=== PATIENT | female | born 1965 | race Caucasian/White ===

== ENCOUNTER → 2021-06-14 10:52 | Outpatient (CLI) | payer OTHER, SELFPAY ==
--- NOTE | ~2021-06-14 | MM_ITS ---
EXAMINATION: MM screening [facility] BI w jhon HISTORY: Screening mammogram TECHNIQUE: Craniocaudal and mediolateral oblique 3-D tomosynthesis images were obtained and synthetic 2-D images were generated. CAD analysis was submitted and interpreted. COMPARISON: 08/05/2019, 11/26/2017, 05/06/2017, 09/25/2016 BREAST PARENCHYMAL COMPOSITION: There are scattered areas of fibroglandular density. FINDINGS: There is no evidence of suspicious mass, calcification, or architectural distortion to sugg est malignancy in either breast. There has been no suspicious interval change. IMPRESSION: 1. No mammographic evidence of malignancy. 2. Recommend routine screening mammography in one year. BI-RADS Category 1: Negative Reviewed, dictated and finalized at location A.
== END ==
PROVIDERS: Visit Provider Obstetrics & Gynecology
DX: Z12.31 Encounter for screening mammogram for malignant neoplasm of breast (principal)
CPT/HCPCS: 77063; 77067

== ENCOUNTER 2022-10-10 14:01 | Emergency (ER) | payer OTHER, SELFPAY ==
[2022-10-10 14:10] VITALS: BP 147/84; PULSE 86; RESP 18; TEMP 36.4; O2SAT 100
--- NOTE | 2022-10-10 14:10 | ED.UPPEXIN ---
HPI - Extremity Injury (Upper) General Chief Complaint: Skin/Abscess/Foreign Body Stated Complaint: FINGER BRUISING/NUMBNESS Time Seen by Provider: 10/10/22 14:15 Source: patient Mode of arrival: ambulatory Limitations: no limitations History of Present Illness HPI narrative: 57-year-old female presents with concern for discoloration to the 3rd digit of the right hand. She reports she began having purple coloration to the distal digit with numbness prior to arrival. She denies any injury or trauma. She reports after her blood pressure was taken in triage and she was massaging the finger feeling returned and the color returned to normal. She reports several days ago she was waxing her car and developed a very small blood blister on that finger, she denies any other injury or trauma. She denies pain, decreased strength, range of motion. MD complaint: injury to: right and finger Related Data Home Medications Medication Instructions Recorded Confirmed alendronate 70 mg tablet 70 mg PO WEEKLY 10/10/22 10/10/22 Allergies Allergy/AdvReac Type Severity Reaction Status Date / Time No Known Allergies Allergy Verified 10/10/22 14:08 Review of Systems Review of Systems: CONSTITUTIONAL: Denies malaise, chills, sweats, or fever. CARDIOVASCULAR: Denies chest pain, palpitations, or edema. RESPIRATORY: Denies cough or dyspnea. SKIN: Denies rash or itching. Denies lacerations or abrasions. Reports blood blister that has resolved on the 3rd digit right hand MUSCULOSKELETAL: Reports decreased sensation, discoloration of the 3rd digit of the right hand NEUROLOGIC: Denies weakness or headache. All systems reviewed & are unremarkable except as noted in HPI and below PMFSH Social History Social History Smoking status: Never smoker Alcohol intake: current Comments At time of signature, agree with nursing past medical, surgical, social and family history. There is no relevant family history pertinent to the presenting complaint Exam Narrative: GENERAL: Well-appearing, well-nourished, and in no acute distress. HEAD: Normocephalic EYES: PERRLA, conjunctivae clear NECK: Supple. CHEST: Speaks in full sentences. No respiratory distress. HEART: Regular rate and rhythm. Normal and equal peripheral pulses. EXTREMITIES: 3rd digit of the right hand concurrently has normal strength and sensation. 5/5 strength with digit flexion, extension. Range of motion normal. No clubbing, cyanosis, or edema noted. No tenderness. Skin intact. Normal digital cascade with flexion of fingers, median, ulnar and radial nerve intact. Normal sensation of each side of finger. Can perform 'okay' sign, 'cross over finger test of index and middle fingers' and 'thumbs up' sign. No scissoring. Normal thumb opposition. Good capillary refill and radial pulse. Capillary refill equal to the left hand. Distal capillary refill less than 3 seconds. Patient is right/left hand dominant SKIN: Warn, dry, intact, pink. No rash NEURO: Alert and oriented x3. PSYCH: Normal mood and affect Course Course Emergency Course: Prior to patient being transferred she reports that the palmar aspect of the digit is starting to become a little more purple. Digit still has equal capillary refill, normal sensation. Reiterated discharge instructions that if symptoms persist, worsens patient should go the emergency room. Patient is aware of diagnosis, understands and agrees to treatment plan. Anticipatory guidance given. Patient agrees to follow-up as directed and is aware of reasons to seek care at the emergency department. Portions of this record may have been created with voice recognition software Level of Care: Express Care Visit Vital Signs Vital signs: Reviewed. Critical Care Time Critical Care Time Critical Care Time: No Discharge Plan Discharge Clinical Impression: Cyanosis of fingertip Patient Disposition: Home, Self-Care Condition: Stable Instructions
== END 2022-10-10 14:34 | disposition home or self-care (01) ==
PROVIDERS: Emergency Provider Nurse Practitioner; PCP Obstetrics & Gynecology
DX: R23.0 Cyanosis (principal)
CPT/HCPCS: 99202; G0463

== ENCOUNTER → 2022-12-22 13:58 | Outpatient (CLI) | payer OTHER, SELFPAY ==
--- NOTE | ~2022-12-22 | MM_ITS ---
EXAMINATION: MM screening [facility] BI w jhon HISTORY: Screening mammogram TECHNIQUE: Craniocaudal and mediolateral oblique 3-D tomosynthesis images were obtained and synthetic 2-D images were generated. CAD analysis was submitted and interpreted. COMPARISON: 06/14/2021, 08/05/2019 bilateral screening mammogram examinations BREAST PARENCHYMAL COMPOSITION: There are scattered areas of fibroglandular density. FINDINGS: There is no evidence of suspicious mass, calcification, or architectural distortion to sugg est malignancy in either breast. There has been no suspicious interval change. IMPRESSION: 1. No mammographic evidence of malignancy. 2. Recommend routine screening mammography in one year. BI-RADS Category 1: Negative Reviewed, dictated and finalized at location A. 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
== END ==
PROVIDERS: PCP Obstetrics & Gynecology; Visit Provider Obstetrics & Gynecology
DX: Z12.31 Encounter for screening mammogram for malignant neoplasm of breast (principal)
CPT/HCPCS: 77063; 77067

== ENCOUNTER 2024-09-06 00:39 | Day surgery (SDC) | payer OTHER, SELFPAY ==
[2024-08-22 12:27] VITALS: BMI 24.5
[2024-09-06 08:18] VITALS: BP 122/83; PULSE 76; RESP 18; TEMP 35.9; O2SAT 100
[2024-09-06] MEDS: LACTATED RINGERS 1,000 ML 150 ML IV CONT (08:26)
--- NOTE | 2024-09-06 09:09 | P.PNAN_ITS ---
Anes - Initial Pre Proc Eval Procedure: Operation Date: 09/06/24 09:30 Proposed Procedures p Screening Colonoscopy - Bruce Mayo MD Date/Time: 09/06/24 09:09 Surgeon: Bruce Mayo MD Pre Op Diagnosis: screening neoplasm of colon Patient Data Age: 59 Gender: F Height: 1.68 m Weight: 67.7 kg Last Vital Signs Temp 96.6 F L 09/06/24 08:18 Pulse 76 09/06/24 08:18 Resp 18 09/06/24 08:18 BP 122/83 09/06/24 08:18 Pulse Ox 100 09/06/24 08:18 O2 Del Method Room Air 09/06/24 08:18 Allergies Allergy/AdvReac Type Severity Reaction Status Date / Time No Known Allergies Allergy Verified 09/06/24 08:16 Home Medications Medication Instructions Recorded Confirmed Type alendronate 70 mg tablet 70 mg PO WEEKLY 10/10/22 09/06/24 History Vitamin D (with calcium) 1 cap PO DAILY 08/22/24 09/06/24 History multivit with minerals-iron 18 1 tablet PO DAILY 08/22/24 09/06/24 History mg-folic ac 400 mcg-vit K 25 mcg tablet (Adults Multivitamin) omega-3 fatty acids 1 cap PO DAILY 08/22/24 09/06/24 History Patient hx anesthesia problems: none Family hx anesthesia problems: none Results Review: All pre-operative results and documents have been reviewed as part of the pre- operative evaluation. PMF Social History Social History Smoking status: Never smoker Alcohol intake: current Drinks per week: 5 Substance use: never Substance use type: does not use Living arrangements: with family Spiritual care concerns: No Anes - Eval Final PreProcedure Day of Procedure 09/06/24 09:09 Patient weight: normal Heart: regular rate and rhythm Lungs: clear to auscultation Airway: Mallampati scale class II Neurological: alert and oriented Last oral intake: >/= 8 hours ASA classification: II Emergent: no Anesthetic plan: proceed Anesthesia type and monitoring: general GIVS and standard monitoring Results Review: All pre-operative results and documents have been reviewed as part of the pre- operative evaluation. Informed Consent: The patient's anesthetic plan and its attendant risks and benefits were discussed with the patient/family/POA. Questions were solicited and answers provided to the satisfaction of the patient/family/POA.
--- NOTE | 2024-09-06 09:37 | PM.IMHP ---
H&P: HPI History of Present Illness Date/Time: 09/06/24 09:37 Chief Complaint: Screening for colon cancer. Narrative: The patient has a history of colonic polyps. Here for surveillance colonoscopy. Review of Systems Review of Systems: All systems reviewed & are unremarkable except as noted in HPI and below PMFSH Social History Social History Smoking status: Never smoker Alcohol intake: current Drinks per week: 5 Substance use: never Substance use type: does not use Living arrangements: with family Spiritual care concerns: No Meds Home Medications and Allergies Home Medications Medication Instructions Recorded Confirmed Type alendronate 70 mg tablet 70 mg PO WEEKLY 10/10/22 09/06/24 History Vitamin D (with calcium) 1 cap PO DAILY 08/22/24 09/06/24 History multivit with minerals-iron 18 1 tablet PO DAILY 08/22/24 09/06/24 History mg-folic ac 400 mcg-vit K 25 mcg tablet (Adults Multivitamin) omega-3 fatty acids 1 cap PO DAILY 08/22/24 09/06/24 History Allergies Allergy/AdvReac Type Severity Reaction Status Date / Time No Known Allergies Allergy Verified 09/06/24 08:16 Vital Signs Vital Signs - 24 hr 09/06/24 08:18 Temperature 96.6 F L Pulse Rate 76 Respiratory Rate 18 Blood Pressure 122/83 Pulse Oximetry 100 Oxygen Delivery Room Air Assessment and Plan Assessment and plan (1) Screening for malignant neoplasm of colon: Code(s): Z12.11 - Encounter for screening for malignant neoplasm of colon Status: Acute Plan Patient deemed appropriate candidate for colonoscopy. Will proceed.
[2024-09-06] MEDS: SIMETHICONE ORAL SUSPENSION 20 MG/0.3 ML 30 ML BOTTLE 0.6 ML IRRIGATION (09:49)
[2024-09-06 10:06] VITALS: BP 96/59; PULSE 62; RESP 15; O2SAT 100
[2024-09-06 10:16] VITALS: BP 101/69; PULSE 60; RESP 20; O2SAT 100
[2024-09-06 10:26] VITALS: BP 104/74; PULSE 60; RESP 19; O2SAT 100
== END 2024-09-06 10:51 | disposition home or self-care (01) ==
PROVIDERS: PCP Obstetrics & Gynecology; Referring Provider Obstetrics & Gynecology; Visit Provider Internal Medicine Gastroenterology
PROC: 0DJD8ZZ Inspection of Lower Intestinal Tract, Via Natural or Artificial Opening Endoscopic (ICD-10-PCS; CPT 45378; principal; 2024-09-06 09:30)
DX: Z12.11 Encounter for screening for malignant neoplasm of colon (principal); D12.2 Benign neoplasm of ascending colon; D12.4 Benign neoplasm of descending colon; Z79.83 Long term (current) use of bisphosphonates
CPT/HCPCS: 45385; 88305; J2003; J2704; J7120

== ENCOUNTER 2024-11-03 11:56 | Outpatient (CLI) | payer OTHER, SELFPAY ==
--- NOTE | ~2024-11-03 | MM_ITS ---
EXAMINATION: MM screening [facility] BI w jhon HISTORY: Screening TECHNIQUE: Craniocaudal and mediolateral oblique 3-D tomosynthesis images were obtained and synthetic 2-D images were generated. CAD analysis was submitted and interpreted. COMPARISON: Comparison to multiple prior studies sequentially, with oldest reviewed study dated 04/2019. BREAST PARENCHYMAL COMPOSITION: Not dense: There are scattered areas of fibroglandular density. FINDINGS: There is no evidence of suspicious mass, calcification, or architectural distortion to sugg est malignancy in either breast. There has been no suspicious interval change. IMPRESSION: 1. No mammographic evidence of malignancy. 2. Recommend routine screening mammography in one year. BI-RADS Category 1: Negative Reviewed, dictated and finalized at location B. 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
== END 2024-11-03 11:57 | disposition home or self-care (01) ==
PROVIDERS: PCP Obstetrics & Gynecology; Visit Provider Obstetrics & Gynecology
DX: Z12.31 Encounter for screening mammogram for malignant neoplasm of breast (principal)
CPT/HCPCS: 77063; 77067

== ENCOUNTER 2025-06-27 13:16 | Emergency (ER) | payer OTHER, SELFPAY ==
[2025-06-27] VITALS (11 sets, daily range): BP systolic 73–141; BP diastolic 57–87; PULSE 72–94; RESP 13–19; TEMP 36.6–36.9; O2SAT 77–100
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
--- OUTSIDE RECORDS SUMMARY | 2025-06-27 13:22 | XMS_ITS | Encounter Summary ---
Author Organization [facility] Healthcare Address [address] [place] [address] Care Team Providers Care Snowboarding Instructor Name Role Phone Jensen Scott MD Primary Care Provider [phone] [phone] Encounter Details Date Type Department Care Team (Late st Contact Info) Description 05/08/2025 Results Follow-Up [facility] at [place] [address] [place] [address] Kalpana Nguyen UTILIZATION REVIEW COORDINATOR [address] 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
--- OUTSIDE RECORDS SUMMARY | 2025-06-27 13:22 | XMS_ITS | Referral Summary ---
Author Organization [facility] Address [address] [place] [address] Care Team Providers Care Clerk Of Court Name Role Phone Jensen Scott MD Primary Care Provider [phone] Encounters Date Type Department Care Team Description 06/07/2025 Results Follow-Up [address] Medical Office Building [address] [place] [phone] Lucinda Aranda MD Vitamin D 25 hydroxy 06/07/[address] Medical Office Building [address] [place] [phone] Lucinda Aranda MD 06/07/2025 1:15 PM CDT Lab [facility] at [address] [address] Osteopenia of multiple sites 06/07/2025 10:10 AM CDT Clinical Support [address] Medical Office Building [address] [place] [address] Osteopenia of multiple sites 06/07/2025 10:40 AM CDT Office Visit [address] Medical Office Building [address] [place] [phone] Lucinda Aranda MD Osteopenia of multiple sites (Primary Dx) 05/12/2025 Orders Only [facility] [address] [facility] 5th [place] [address] [place] [phone] Lucinda Aranda MD Osteopenia of multiple sites (Primary Dx) 05/08/2025 Results Follow-Up [facility] Medical Group [facility] at [address] [address] Kalpana Nguyen NP XR Foot Right 3+ Vw 05/08/2025 10:15 AM CDT Ancillary Procedure [facility] at [address] [address] Acute foot pain, right 05/07/2025 9:00 AM CDT Office Visit [facility] at [address] [address] Merna London NP Acute foot pain, right (Primary Dx) from Last 3 Months Allergies No known active allergies Medications calcium-vitam in D3-vitamin K 500-100-40 mg-unit-mcg tablet,chewab le Take 1 Dose by mouth Vitachew- [employer] Calcium 650 mg + vitamin D 500 international units Active multivitamin capsule Take 2 capsules by mouth daily Centrum Silver Women's 50 Calcium 300 mg Vitamin D 1000 international units' Active docosahexaeno ic acid/epa (FISH OIL ORAL) Take by mouth Active cholecalcifer ol, vitamin D3, (Vitamin D3) 1,000 unit tablet,chewab le Take by mouth Active alendronate (FOSAMAX) 70 mg tabletIndicat ions:Osteopen ia of multiple sites Take 1 tablet (70 mg total) by mouth every 7 days T 12 tablet 3 04/11/20 24 025 Discontinued Active Problems No known active problems Social History Tobacco Use Types Packs/Day Years Used Date Smoking Tobacco: Never Smokeless Tobacco: Never Tobacco Cessation:Counseling Given: Not Answered Comments Unknown Sex and Gender Information Value Date Recorded Sex Assigned at Not on file 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 Gender Identity Not on file Sexual Orientation Not on file Last Filed Vital Signs Vital Sign Reading Time Taken Comments Blood Pressure 149/89 05/07/2025 8:45 AM CDT Pulse 80 05/07/2025 8:45 AM CDT Temperature 36 C (96.8 F) 05/07/2025 8:45 AM CDT Respiratory Rate 20 05/07/2025 8:45 AM CDT Oxygen Saturation 98% 05/07/2025 8:45 AM CDT Inhaled Oxygen Concentration - - Weight 72.6 kg (160 lb 1.6 oz) 06/07/2025 10:20 AM CDT Height 167 cm (5' 5.75) 06/07/2025 10:20 AM CDT Body Mass Index 26.04 06/07/2025 10:20 AM CDT Plan of Treatment Not on file Procedures Procedure Name Priority Date/Time Associated Diagnosis Comments VITAMIN D 25 HYDROXY Routine 06/07/2025 11:03 AM CDT Osteopenia of multiple sites DEXA TBS AXIAL SKELETON BONE DENSITY 1 OR MORE SITES Schedule Routine, Read Routine (OP Routine) 06/07/2025 10:13 AM CDT Osteopenia of multiple sites XR FOOT RIGHT 3 OR MORE VIEWS Schedule ZINA, Read ZINA (Appt Today, Awaiting Results) 05/08/2025 9:51 AM CDT Acute foot pain, right from Last 3 Months Results * Vitamin D 25 hydroxy (06/07/2025 11:03 AM CDT) Vitamin D 25-OH 35 30 - 80 ng/mL Comment:Testing performed by : [facility], [address] [facility], [place] [address] Blood 06/07/2025 11:0 3 AM CDT 06/07/2025 11:22 AM CDT us Lucinda Aranda MD LAB BLOOD ORDERABLES Final Re sult [facility] [address] [facility]. [place] [address] * Dexa TBS Axial Skeleton Bone Density 1 or more sites (06/07/2025 10:13 AM CDT) Anatomical Region Laterality Modality Wrist, Body N/A Radiographic Yasmeen ging Narrative 06/07/2025 10:23 AM CDT Patient Name: Agueda hZou Date of : 1965 Date of scan: 06/07/2025 Bone mineral density was performed on a [employer] Discovery Densitometer. Based on machine cross-calibration and precision studies the least significant changes of this densitometer is 0.024 g/cm2 at the spine, 0.020 g/cm2 at the total proximal femur, and 0.014g/cm2 at the forearm. HISTORY: This is a 59 y.o. postmenopausal female with a history of low bone mass. She reports that she has never smoked. She has never used smokeless tobacco. Currently on treatment with calcium, vitamin D, and alendronate (Fosamax) and current complaint of leg pain. INDICATIONS: Menopause status, treatment monitoring, and history of low bone mass. FINDINGS: BONE MINERAL DENSITY OF THE LUMBAR SPINE Bone Mineral Density (BMD) of the lumbar spine was measured from L1-L4 and the average density was calculated to be 0.857 gm/cm2. This corresponds to a T-score (standard deviations from the mean of young adults) of -1.7. When compared to the previous study of 03/08/2024 there has been no significant changes in bone density. BONE MINERAL DENSITY OF THE PROXIMAL FEMUR Bone Mineral Density (BMD) of the left hip total was found to be 0.787 gm/cm2. This corresponds to a T-score standard deviations from the mean of young adults of -1.3. Femoral neck is 0.698 gm/cm2 with a T-score (standard deviations from the mean of young adults) of -1.4. When compared to the previous study of 03/08/2024 there has been a 0.022 gm/cm (2.9%) increase in bone density that is considered significant. SUMMARY: Bone mineral density shows evidence of low bone mass at the lumbar spine and proximal femur and moderately increased fracture risk (Osteopenia). There has been a significant increase in bone density since previous measurement. The lumbar spine Trabecular Bone Score is 1.289 which suggests partially degraded bone microarchitecture compared to the general population. Final decisions regarding diagnostic or therapeutic recommendations should include BMD, TBS, additional clinical risk factors as well the clinical context of the patient. Please see attached TBS results for further details. ADDITIONAL COMMENTS: Postmenopausal Women and Men Over 50: Diagnostic criteria: Osteoporosis: BMD at or below -2.5 T-score; Osteopenia (low bone mass): BMD between -1.0 and -2.5 T-score. If the patient has a history of a fragility fracture, a fracture that occurred with trauma equivalent to a fall from a standing position or less, then the diagnosis is osteoporosis regardless of bone density. The history and data sections of the bone mineral density scan were prepared by Ruthei Ramirez (R)([facility]) who is accredited by the International Society of Clinical Densitometry. The overall patient assessment and scan interpretation were performed by Lucinda Aranda M.D. who is certified by the International Society of Clinical Densitometry. [id number] Lucinda Aranda MD [facility] DXA PROCEDURES Final Resu lt * XR Foot Right 3+ Vw (05/08/2025 9:51 AM CDT) Anatomical Region Laterality Modality Lower Extremities, Foot Right Digital Radiography 05/08/2025 3:24 PM CDT Narrative 05/08/2025 3:26 PM CDT EXAM DESCRIPTION: XR FOOT RIGHT 3 OR MORE VIEWS REASON FOR STUDY: pain Pt complains of generalized right foot pain x 5 days. No known injury or prior surgery TECHNIQUE: 3 radiographic view(s) of the right foot . COMPARISON: None available FINDINGS: No gross malalignment on nonweightbearing views. The joint spaces appear normal. No acute fracture or aggressive bone lesion is seen. No radiopaque foreign body identified.. Small heel spur is noted IMPRESSION: No acute osseous findings. THIS IS AN ELECTRONICALLY VERIFIED FINAL REPORT 05/08/2025 3:26 PM - Electronically signed by Tony Wolfe M.D. MZ T: Report ID: [id number] Reading Location: [id number] Procedure Note Tony Wolfe MD - 05/08/2025 EXAM DESCRIPTION: XR FOOT RIGHT 3 OR MORE VIEWS REASON FOR STUDY: pain Pt complains of generalized right foot pain x 5 days. No known injury orprior surgery TECHNIQUE: 3 radiographic view(s) of the right foot . COMPARISON: None available FINDINGS: No gross malalignment on nonweightbearing views. The jointspaces appear normal. No acute fracture or aggressive bone lesion is seen. No radiopaque foreign body identified.. Small heel spur is noted IMPRESSION: No acute osseous findings. THIS IS AN ELECTRONICALLY VERIFIED FINAL REPORT 05/08/2025 3:26 PM - Electronically signed by Tony Wolfe M.D. MZ T: Report ID: [id number] Reading Location: [place] [address] Merna London SOFTWARE SALES CONSULTANT IMG XR PROCEDURES Final Result from Last 3 Months Insurance [employer] [place] [id number] [employer] [facility] [id number] [facility] [id number] [facility] [id number] [address] Relationship Specialty Start Date End Date Jensen Scott MD [address] [facility] [address] [place] [address] PCP - General 06/27/20
--- OUTSIDE RECORDS SUMMARY | 2025-06-27 13:22 | XMS_ITS | Encounter Summary ---
Author Organization [facility] Address [address] [place] [address] Phone Care Team Providers Care X Ray Control Equipment Repairer Name Role Phone Jensen Scott MD Primary Care Provider [phone] [phone] Encounter Details Date Type Department Care Team (Late st Contact Info) Description 06/07/2025 Results Follow-Up [address] Medical Office Building [address] [place] [phone] Lucinda Aranda MD [address] [place] [address] [address] [place], [place] [id number] Vitamin D 25 hydroxy Social History Tobacco Use Types Packs/Day Years Used Date Smoking Tobacco: Never Smokeless Tobacco: Never Comments Unknown Sex and Gender Information Value Date Recorded Sex Assigned at Not on file 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 Please make sure that you maintain vitamin-D 1764-8766 IU [id number] on a daily basis. Please let me know if you have any questions. documented in this encounter Plan of Treatment Not on file documented as of this encounter Visit Diagnoses Not on filedocumented in this encounter Care Teams X Ray Control Equipment Repairer Relationship Specialty Start Date End Date Jensen Scott MD [address] [place] [id number] PCP - General 06/27/20 documented as of this encounter
--- OUTSIDE RECORDS SUMMARY | 2025-06-27 13:22 | XMS_ITS | Clinical Summary ---
Author Organization [facility] Address [address] [place] [address] Care Team Providers Care Sap Hana Developer Name Role Phone Jensen Scott MD Primary Care Provider [phone] [phone] Allergies No known active allergies Medications calcium-vitam [...] Discontinued Active Problems No known active problems Encounters Date Type Department Care Team Description 06/07/2025 1:15 PM CDT Lab [facility] at [address] [phone] Osteopenia of multiple sites 06/07/2025 10:40 AM CDT Office Visit [facility] [address] [place] [address] Medical Office Building 2 [address] [place] [address] Lucinda Aranda MD Osteopenia of multiple sites (Primary Dx) 06/07/2025 10:10 AM CDT Clinical Support [address] Medical Office Building 2 [address] [place] [address] Osteopenia of multiple sites 06/07/2025 Results Follow-Up [address] Office Building [address] [place] [address] Lucinda Aranda MD Vitamin D 25 hydroxy 06/07/[address] Office Building [address] [place] [address] Lucinda Aranda MD 05/12/2025 Orders Only [place] [id number] [facility] 5th [place] [address] [place] [address] Lucinda Aranda MD Osteopenia of multiple sites (Primary Dx) 05/08/2025 10:15 AM CDT Ancillary Procedure [facility] Imaging at [address] [address] Acute foot pain, right 05/08/2025 Results Follow-Up [facility] at [address] [address] Kalpana Nguyen NP XR Foot Right 3+ Vw 05/07/2025 9:00 AM CDT Office Visit [facility] at [address] [address] Merna London NP Acute foot pain, right (Primary Dx) from Last 3 Months Family History Medical History Relation Name Comments Osteoporosis Other Hip fracture Neg Hx Scoliosis Neg Hx Relation Name Status Comments Other Social History Tobacco Use Types Packs/Day Years Used Date Smoking Tobacco: Never Smokeless Tobacco: Never Tobacco Cessation:Counseling Given: Not Answered Comments Unknown Sex and Gender Information Value Date Recorded Sex Assigned at Not on file 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 Gender Identity Not on file Sexual Orientation Not on file Obstetrics History Last Filed Vital Signs Vital Sign Reading [...] 06/07/2025 10:20 AM CDT Plan of Treatment Health Maintenance Due Date Last Done Comments Breast Cancer Screening-Mammogram 1965 Cervical Cancer Screening 1965 Colon Cancer Screening-Colonoscopy 1965 Depression Screening 1965 Hepatitis C Screening 1965 DTaP/Tdap/Td Vaccine (1 - Tdap) 1975 Hepatitis B Screening 1982 Regular Well Visit/Exam 18-64 1982 Zoster Vaccine (1 of 2) 2014 Influenza Vaccine (#1) 2025 Pneumococcal vaccine <65 Aged Out No longer eligible based on patient's age to complete this topic Procedures Procedure Name Priority Date/Time Associated Diagnosis [...] - 80 ng/mL Comment:Testing performed by : [facility], [address] [place] [address] Blood 06/07/2025 11:0 3 AM CDT 06/07/2025 11:22 AM CDT us Lucinda Aranda MD LAB BLOOD ORDERABLES Final Re sult [facility] [address] [facility]. [place] [address] * Dexa TBS Axial Skeleton Bone Density 1 or more sites (06/07/2025 10:13 AM CDT) Anatomical Region Laterality Modality Wrist, Body N/A Radiographic Yasmeen ging Narrative 06/07/2025 10:23 AM CDT Patient Name: Agueda Zhou Date of : 1965 Date of scan: 06/07/2025 Bone mineral density was performed on a [employer] Discovery Densitometer. Based on machine cross-calibration and [...] bone mineral density scan were prepared by Ruthie Ramirez (R)(CBDT) who is accredited by the International Society of Clinical Densitometry. The overall patient assessment and scan interpretation were performed by Lucinda Aranda M.D. who is certified by the International Society of Clinical Densitometry. [id number] Lucinda Aranda MD IM DXA PROCEDURES Final Resu lt * XR [...] Tony Wolfe M.D. MZ T: Report ID: [id number] Reading Location: [id number] Procedure Note Tony Wolfe MD - 05/08/2025 [...] Tony Wolfe M.D. MZ T: Report ID: [id number] Reading Location: [id number] Merna London SOFTWARE DEVELOPMENT INTERN IMG XR PROCEDURES Final Result from Last 3 Months Insurance PENDING SALE TO [facility] [id number] [facility] [id number] [facility] [id number] [facility] [id number] Care Teams Sap Hana Developer Relationship Specialty Start Date End Date Jensen Scott MD [address] [facility] [address] [id number] PCP - General 06/27/20
--- NOTE | 2025-06-27 13:31 | ECG_ITS ---
Test Date: 2025-06-27 13:36:20 Measurements Intervals [place] Rate: 92 P: 55 HI: 158 QRS: 29 QRSD: 136 T: 30 QT: 349 QTc: 433 Interpretive Statements SINUS RHYTHM INTRAVENTRICULAR CONDUCTION DELAY Electronically Signed On 06-27-2025 17:31:03 CDT by Gerson Bello D.O
--- OUTSIDE RECORDS SUMMARY | 2025-06-27 14:38 | XMS_ITS | Encounter Summary ---
Author Organization [facility] Address [address] [place] [address] Phone Care Team Providers Care Lab Analyst Name Role Phone Jensen Scott MD Primary Care Provider [phone] [phone] Encounter Details Date Type Department Care Team (Late st Contact Info) Description 06/07/2025 Results Follow-Up [address] Medical Office Building [address] [place] [phone] Lucinda Aranda MD [address] [place] [address] [address] [place], [place] [id number] Vitamin D 25 hydroxy Social History Tobacco Use Types Packs/Day Years Used Date Smoking Tobacco: Never Smokeless Tobacco: Never Comments Unknown Sex and Gender Information Value Date Recorded Sex Assigned at Not on file 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 Please make sure that you maintain vitamin-D 1373-1454 IU [id number] on a daily basis. Please let me know if you have any questions. documented in this encounter Plan of Treatment Not on file documented as of this encounter Visit Diagnoses Not on filedocumented in this encounter Care Teams Lab Analyst Relationship Specialty Start Date End Date Jensen Scott MD [address] [place] [id number] PCP - General 06/27/20 documented as of this encounter
--- OUTSIDE RECORDS SUMMARY | 2025-06-27 14:38 | XMS_ITS | Clinical Summary ---
Author Organization [facility] Address [address] [place] [address] Care Team Providers Care Speed Belt Sander Name Role Phone Jensen Scott MD Primary Care Provider [phone] Allergies No known active allergies Medications calcium-vitam [...] Team Description 06/07/2025 1:15 PM CDT Lab [facility] at [address] [phone] Osteopenia of multiple sites 06/07/2025 10:40 AM CDT Office Visit [facility] [address] [place] [address] Medical Office Building 2 [address] [place] [address] Lucinda Aranda MD Osteopenia of multiple sites (Primary Dx) 06/07/2025 10:10 AM CDT Clinical Support [address] Medical Office Building 2 [address] [place] [address] Osteopenia of multiple sites 06/07/2025 Results Follow-Up [address] Office Building [address] [place] [address] Lucinda Aranda MD Vitamin D 25 hydroxy 06/07/[address] Office Building [address] [place] [address] Lucinda Aranda MD 05/12/2025 Orders Only [place] [id number] [facility] 5th [place] [address] [place] [address] Lucinda Aranda MD Osteopenia of multiple sites (Primary Dx) 05/08/2025 10:15 AM CDT Ancillary Procedure [facility] Imaging at [address] [address] Acute foot pain, right 05/08/2025 Results Follow-Up [facility] at [address] [address] Kalpana Nguyen NP XR Foot Right 3+ Vw 05/07/2025 9:00 AM CDT Office Visit [facility] at [address] [address] Merna London NP Acute foot [...] on file 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 [place] [address] * Dexa TBS Axial Skeleton Bone Density 1 or more sites (06/07/2025 10:13 AM CDT) Anatomical Region Laterality Modality Wrist, Body N/A Radiographic Yasmeen ging Narrative 06/07/2025 10:23 AM CDT Patient Name: Agueda Zhou Date of : 1965 Date of scan: 06/07/2025 Bone mineral density was performed on a [employer] Discovery Densitometer. Based on machine cross-calibration and [...] by the International Society of Clinical Densitometry. [id number] Lucinda Aranda MD IM DXA PROCEDURES Final [...] Tony Wolfe M.D. MZ T: Report ID: [id number] Reading Location: [id number] Procedure Note Tony Wolfe MD - 05/08/2025 [...] Tony Wolfe M.D. MZ T: Report ID: [id number] Reading Location: [id number] Merna London RIGHT OF WAY MAINTENANCE SUPERVISOR IMG XR PROCEDURES Final Result from Last 3 Months Insurance [facility] [id number] [facility] [id number] [facility] [id number] [facility] [id number] Care Teams Speed Belt Sander Relationship Specialty Start Date End Date Jensen Scott MD [address] [facility] [address] [id number] PCP - General 06/27/20
--- OUTSIDE RECORDS SUMMARY | 2025-06-27 14:38 | XMS_ITS | Referral Summary ---
Author Organization [facility] Address [address] [place] [address] Care Team Providers Care Audio Visual Project Manager Name Role Phone Jensen Scott MD Primary Care Provider [phone] Encounters Date Type Department Care Team Description 06/07/2025 Results Follow-Up [address] Medical Office Building [address] [place] [address] Lucinda Aranda MD Vitamin D 25 hydroxy 06/07/[address] Medical Office Building [address] [place] [address] Lucinda Aranda MD 06/07/2025 1:15 PM CDT Lab [facility] at [address] [address] Osteopenia of multiple sites 06/07/2025 10:10 AM CDT Clinical Support [address] Medical Office Building [address] [place] [address] Osteopenia of multiple sites 06/07/2025 10:40 AM CDT Office Visit [address] Medical Office Building [address] [place] [address] Lucinda Aranda MD Osteopenia of multiple sites (Primary Dx) 05/12/2025 Orders Only [facility] [address] [facility] 5th [place] [address] [place] [address] Lucinda Aranda MD Osteopenia of multiple sites (Primary Dx) 05/08/2025 Results Follow-Up [facility]ient Care at [address] [address] Kalpana Nguyen NP XR Foot Right 3+ Vw 05/08/2025 10:15 AM CDT Ancillary Procedure [facility] Imaging at [address] [address] Acute foot pain, right 05/07/2025 9:00 AM CDT Office Visit [facility] at [address] [address] Merna London NP Acute foot [...] on file 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 Department [place] [address] * Dexa TBS Axial Skeleton Bone Density 1 or more sites (06/07/2025 10:13 AM CDT) Anatomical Region Laterality Modality Wrist, Body N/A Radiographic Yasmeen ging Narrative 06/07/2025 10:23 AM CDT Patient Name: Agueda Zhou Date of : 1965 Date of scan: 06/07/2025 Bone mineral density was performed on a [employer] Discovery Densitometer. Based on machine cross-calibration and [...] density scan were prepared by Ruthie Ramirez (R)([facility]) who is accredited by the International Society of Clinical Densitometry. The overall patient assessment and scan interpretation were performed by Lucinda Aranda M.D. who is certified by the International Society of Clinical Densitometry. [id number] Lucinda Aranda MD [facility] DXA PROCEDURES Final Resu lt * XR [...] Tony Wolfe M.D. MZ T: Report ID: [id number] Reading Location: [id number] Procedure Note Tony Wolfe MD - 05/08/2025 [...] Tony Wolfe M.D. MZ T: Report ID: [id number] Reading Location: [place] [address] Merna London SODA FLAKER IMG XR PROCEDURES Final Result from Last 3 Months Insurance [facility] [place] [id number] [facility] [id number] [facility] [id number] [facility] [id number] Care Teams Audio Visual Project Manager Relationship Specialty Start Date End Date Jensen Scott MD [address] [facility] [address] [place] [address] PCP - General 06/27/20
--- OUTSIDE RECORDS SUMMARY | 2025-06-27 14:38 | XMS_ITS | Encounter Summary ---
Author Organization [facility] Address [address] [place] [address] Care Team Providers Care Waxer Floor Name Role Phone Jensen Scott MD Primary Care Provider [phone] [phone] Encounter Details Date Type Department Care Team (Late st Contact Info) Description 05/08/2025 Results Follow-Up 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
[2025-06-27 14:48] LABS: Hematocrit 39.4 % (37.0-47.0); Hemoglobin 13.2 g/dL (12.0-15.0); Immature Granulocyte Percent A 1.0 % (0-0.5); Lymphocytes Absolute Auto 1.25 K/mm3 (0.9-3.2); Mean Corpuscular HGB Conc 33.5 g/dl (32-36); Mean Corpuscular Hemoglobin 30.7 pg (26-34); Mean Corpuscular Volume 91.6 fl (80-100); Nucleated Red Blood Cells Absolute Auto 0.000 K/mm3 (0.0-0.012); Nucleated Red Blood Cells Perc 0.0 % (0.0-0.2); Platelet Count Result 235 k/mm3 (150-375); Red Blood Count 4.30 M/mm3 (4.2-5.4); White Blood Count 11.3 K/mm3 (4.5-10.0)
[2025-06-27 15:21] LABS: Alanine Aminotransferase 29 U/L (6-35); Albumin Level 4.7 g/dL (3.5-5.1); Alkaline Phosphatase 57 U/L (38-126); Anion Gap 9 mmol/L (4-12); Aspartate Amino Transferase 40 U/L (14-36); Bilirubin,Total 0.5 mg/dL (0.2-1.3); Blood Urea Nitrogen 14 mg/dL (7-17); Calcium 9.4 mg/dL (8.4-10.2); Carbon Dioxide 22 mmol/L (22-30); Chloride 102 mmol/L (98-107); Estimated CRCL calculation 73 ml/min; Estimated Glomerular Filt Rate > 60; Glucose 188 mg/dL (65-110); Potassium 4.1 mmol/L (3.4-5.0); Sodium 133 mmol/L (137-145); Total Protein 7.5 g/dL (6.3-8.2)
[2025-06-27] MEDS: MORPHINE SULFATE (*CRX) 2 MG/ML INJ IV PUSH (15:31)
[2025-06-27] MEDS: SODIUM CHLORIDE 0.9% IV 1,000 ML 999 ML IV CONT (16:08)
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
[2025-06-27] MEDS: CYCLOBENZAPRINE HCL 10 MG TABLET PO (18:52)
[2025-06-28 10:55] LABS: Estimated CRCL calculation 69 ml/min; Estimated Glomerular Filt Rate > 60
== END 2025-06-27 18:59 | disposition home or self-care (01) ==
PROVIDERS: Emergency Provider Emergency Medicine; PCP Obstetrics & Gynecology
DX: S40.211A Abrasion of right shoulder, initial encounter (principal); S20.02XA Contusion of left breast, initial encounter; I72.8 Aneurysm of other specified arteries; V43.62XA Car passenger injured in collision with other type car in traffic accident, initial encounter; I45.9 Conduction disorder, unspecified
CPT/HCPCS: 36415; 71260; 76604; 80053; 85025; 93005; 96361; 96374; 99284; A9270; J2270; J7030; Q9967

== ENCOUNTER 2025-08-15 12:46 | Outpatient (CLI) | payer OTHER, SELFPAY ==
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
--- OUTSIDE RECORDS SUMMARY | 2025-08-15 14:20 | XMS_ITS | Clinical Summary ---
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 Role Phone Jensen Scott MD Primary Care Provider [phone] Allergies No known active allergies Medications calcium-vitami n D3-vitamin K 500-100-40 mg-unit-mcg tablet,chewabl e Take 1 Dose by mouth Vitachew- [employer] Calcium 650 mg + vitamin D 500 international units Active multivitamin capsule Take 2 capsules by mouth daily Centrum Silver Women's 50 Calcium 300 mg Vitamin D 1000 international units' Active docosahexaenoi c acid/epa (FISH OIL ORAL) Take by mouth Active cholecalcifero l, vitamin D3, (Vitamin D3) 1,000 unit tablet,chewabl e Take by mouth Active Active Problems No known active problems Encounters Date Type Department Care Team Description 06/07/2025 1:15 PM CDT Lab [facility] at [address] [address] Osteopenia of multiple sites 06/07/2025 10:40 AM CDT Office Visit [address] [place] [address] Lucinda Aranda MD Osteopenia of multiple sites (Primary Dx) 06/07/2025 10:10 AM CDT Clinical Support [address] [place] [address] Osteopenia of multiple sites 06/07/2025 Results Follow-Up [facility] [address] [facility] [address] [place] [address] Lucinda Aranda MD Vitamin D 25 hydroxy 06/07/2025 Telephone [facility] [address] [facility] [address] [place] [address] Lucinda Aranda MD from Last 3 Months Family History Medical [...] on file Legal Sex Female 1:06 PM [employer] Gender Identity Not on file Sexual Orientation [...] 10:13 AM CDT Osteopenia of multiple sites from Last 3 Months Results * Vitamin D 25 hydroxy (06/07/2025 11:03 AM CDT) Vitamin D 25-OH 35 30 - 80 ng/mL Comment:Testing performed by : [facility], [address] [place] [address] Blood 06/07/2025 11:0 3 AM CDT 06/07/2025 11:22 AM CDT Lucinda Aranda MD LAB BLOOD ORDERABLES Final Re sult [facility] [id number] [employer]. [place] [address] * Dexa TBS Axial Skeleton Bone Density 1 or more sites (06/07/2025 10:13 AM CDT) Anatomical Region Laterality Modality Wrist, Body N/A Radiographic Yasmeen ging Narrative 06/07/2025 10:23 AM CDT Patient Name: Agueda Zhou Date of : 1965 Date of scan: 06/07/2025 Bone mineral density was performed on a HoloRhapso Discovery Densitometer. Based on machine cross-calibration and [...] by the International Society of Clinical Densitometry. 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
== END 2025-08-15 12:47 | disposition home or self-care (01) ==
PROVIDERS: Visit Provider Surgery
DX: S20.02XA Contusion of left breast, initial encounter (principal); X58.XXXA Exposure to other specified factors, initial encounter
CPT/HCPCS: 76642

== ENCOUNTER 2025-11-06 12:19 | Outpatient (CLI) | payer OTHER, SELFPAY ==
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
== END 2025-11-06 12:20 | disposition home or self-care (01) ==
PROVIDERS: PCP Obstetrics & Gynecology; Visit Provider Obstetrics & Gynecology
DX: Z12.31 Encounter for screening mammogram for malignant neoplasm of breast (principal)
CPT/HCPCS: 77063; 77067